=== PATIENT | female | born 1950 | race Caucasian/White ===

== ENCOUNTER → 2019-11-20 | Outpatient (CLI) | payer OTHER | LOC: MC.RAD 09:00 | DX: C50.912 Malignant neoplasm of unspecified site of left female breast (principal); Z98.890 Other specified postprocedural states ==

== ENCOUNTER → 2021-01-06 | Outpatient (CLI) | payer OTHER | LOC: MC.RAD 10:00 | DX: Z12.31 Encounter for screening mammogram for malignant neoplasm of breast (principal); Z80.3 Family history of malignant neoplasm of breast; Z92.3 Personal history of irradiation; Z98.890 Other specified postprocedural states ==

== ENCOUNTER → 2023-03-14 | Outpatient (CLI) | payer OTHER | LOC: MC.RAD 10:02 | DX: Z12.31 Encounter for screening mammogram for malignant neoplasm of breast (principal) ==